=== PATIENT | female | born 1950 | race Caucasian/White ===

== ENCOUNTER 2018-10-24 19:15 | Emergency (ER) | payer BC, MEDICARE ==
[~2018-10-24] VITALS: Ht 149.9 cm; Wt 61.8 kg
[2018-10-24] MEDS ORDERED: ASPI81TA85 PO (19:28)
[2018-10-24] MEDS ORDERED: LIPI20TA PO (19:28)
[2018-10-24] MEDS ORDERED: JINT1TAB PO (19:28)
[2018-10-24] MEDS ORDERED: PROT1TAB2 PO (19:28)
[2018-10-24] MEDS ORDERED: VENL75CA47 PO (19:28)
[2018-10-24] MEDS ORDERED: NS 1,000 ML IV ONE (20:00)
[2018-10-24] MEDS ORDERED: ONDANSETRON 4MG/2ML VIAL (J2405) IV ONE (20:00)
--- NOTE | 2018-10-24 20:23 | REPVR ---
EXAM: CT Head Without Contrast EXAM DATE/TIME: 10/24/2018 7:54 PM CLINICAL HISTORY: 67 years old, female; Signs and symptoms; Dizziness; Additional info: Dizzy, transient tingling of the face bilaterally TECHNIQUE: Imaging protocol: Axial computed tomography images of the head without contrast. Radiation optimization: All CT scans at this facility use at least one of these dose optimization techniques: automated exposure control; mA and/or kV adjustment per patient size (includes targeted exams where dose is matched to clinical indication); or iterative reconstruction. COMPARISON: No relevant prior studies available. FINDINGS: Brain: Normal. No hemorrhage. Unremarkable white matter. No mass effect. Ventricles: Normal. No ventriculomegaly. Bones/joints: Unremarkable. No acute fracture. Sinuses: Visualized sinuses are unremarkable. No fluid levels. Mastoid air cells: Visualized mastoid air cells are well aerated. No mastoid effusion. Soft tissues: Unremarkable. IMPRESSION: No acute intracranial abnormality. Electronically signed by: Boris Vang On 10/24/2018 20:22:56 PM
[2018-10-24 20:25] LABS: BASO % 0.6 % (0.0-1.0); EOS # 0.1 10^3/uL (0.0-0.50); EOS % 1.8 % (0.0-3.0); HEMATOCRIT 40.2 % (36.0-47.0); HEMOGLOBIN 13.1 g/dl (12.0-15.5); LYMPH # 1.9 10^3/uL (1.5-4.5); LYMPH % 26.5 % (24.0-44.0); MEAN CORPUSCULAR HEMOGLOBIN 29.4 pg (27.0-33.0); MEAN CORPUSCULAR HGB CONC 32.6 g/dl (32.0-36.5); MEAN CORPUSCULAR VOLUME 90.1 fl (80.0-96.0); MONO # 0.5 10^3/uL (0.0-0.8); MONO % 6.9 % (0.0-5.0); NEUTROPHILS # 4.6 10^3/uL (1.8-7.7); NEUTROPHILS % 63.8 % (36.0-66.0); PLATELET COUNT, AUTOMATED 202 10^3/uL (150-450); RED BLOOD COUNT 4.46 10^6/uL (4.00-5.40); WHITE BLOOD COUNT 7.1 10^3/uL (4.0-10.0)
[2018-10-24 20:34] LABS: INR 0.92; PROTHROMBIN TIME 12.4 SECONDS (12.1-14.4)
[2018-10-24 20:35] LABS: PARTIAL THROMBOPLASTIN TIME 27.1 SECONDS (25.4-37.6)
[2018-10-24 21:02] LABS: BLOOD UREA NITROGEN 16 MG/DL (7-18); CALCIUM LEVEL 8.9 MG/DL (8.8-10.2); CARBON DIOXIDE LEVEL 24 MEQ/L (21-32); CHLORIDE LEVEL 109 MEQ/L (98-107); CPK CREATINE PHOSPHOKINASE 253 U/L (26-192); CREATININE FOR GFR 0.92 MG/DL (0.55-1.30); GLOMERULAR FILTRATION RATE > 60.0 (>45); GLUCOSE, FASTING 117 MG/DL (70-100); MB/CK RELATIVE INDEX 0.79 (< OR =4); POTASSIUM SERUM 3.7 MEQ/L (3.5-5.1); SODIUM LEVEL 143 MEQ/L (136-145); TROPONIN I < 0.02 NG/ML (< 0.10)
[2018-10-24 21:28] VITALS: BP 184/84
--- NOTE | 2018-10-25 13:20 | ECGEPIP ---
[facility] - ED Test Date: 2018-10-24 Pat Name: OH BURNS Department: Room: - Gender: Female Junior Designer: : 1950 Requested By: LEONARD GREGG PA-C. Order Number: [id number] Reading MD: Jayro Robles Measurements Intervals [place] Rate: 67 P: 44 NV: 138 QRS: 1 QRSD: 93 T: 31 QT: 436 QTc: 460 Interpretive Statements SINUS RHYTHM NO PRIORS FOR COMPARISON Electronically Signed on 10-25-2018 13:20:04 EDT by Jayro Robles
== END 2018-10-24 21:29 | disposition home or self-care (01) ==
LOC: M ED 19:15
DX: R42 Dizziness and giddiness (principal); F33.9 Major depressive disorder, recurrent, unspecified; F41.9 Anxiety disorder, unspecified; K21.9 Gastro-esophageal reflux disease without esophagitis; E78.5 Hyperlipidemia, unspecified; Z79.899 Other long term (current) drug therapy; Z79.82 Long term (current) use of aspirin
CPT/HCPCS: 70450; 80048; 82550; 82553; 84484; 85025; 85610; 85730; 93005; 96374; 99284; J2405

== ENCOUNTER → 2020-04-12 | Outpatient (CLI) | payer SELFPAY ==
[~2020-04-12] MED LIST: ASPI81TA86 PO; JINT1TAB PO; LIPI20TA PO; PROT1TAB2 PO; VENL75CA47 PO
== END ==
LOC: M LABSMTC 13:58
PROVIDERS: ATTEND Pediatrics
DX: Z20.828 Contact with and (suspected) exposure to other viral communicable diseases (principal)